=== PATIENT | male | born 1990 | race African-American/Black ===

== ENCOUNTER 2022-10-23 09:41 | Inpatient (IN) | payer OTHER ==
[~2022-10-23] VITALS: Ht 185.4 cm; Wt 77.7 kg
[2022-10-23] VITALS (17 sets, daily range): BP systolic 86–124; BP diastolic 50–86
[2022-10-23] MEDS ORDERED: NALOXONE HCL 0.4 MG/ML VIAL ONE (09:42)
[2022-10-23] MEDS ORDERED: NALOXONE HCL 1MG/ML 2ML SYRINGE ONE ×2 (09:48→09:54)
[2022-10-23] MEDS ORDERED: NALOXONE HCL 0.4 MG/ML VIAL IV ONE (10:00)
[2022-10-23] MEDS ORDERED: NALOXONE HCL 1MG/ML 2ML SYRINGE IV ONE ×2 (10:00→10:15)
[2022-10-23 10:36] LABS: Albumin 3.8 g/dL (3.4-5.0); Anion Gap 5 (5-15); Blood Alcohol < 3.0 mg/dL (0-5); Blood Urea Nitrogen 15 mg/dL (7-18); Calcium 8.3 mg/dL (8.5-10.1); Carbon Dioxide 24 mmol/L (21-32); Chloride 109 mmol/L (98-107); Glucose 132 mg/dL (74-106); Magnesium 2.1 mg/dL (1.6-2.6); Potassium 3.7 mmol/L (3.5-5.1); Sodium 138 mmol/L (136-145)
[2022-10-23 10:39] LABS: Alanine Aminotransferase 52 U/L (16-61); Alkaline Phosphatase 80 U/L (45-117); Aspartate Aminotransferase 68 U/L (15-37); BUN/Creatinine Ratio 14.9 (10.0-20.0); Bilirubin, Total 0.8 mg/dL (0.2-1.0); GFR African American 112 mL/min; GFR Non-African American 92 mL/min; Total Protein 6.9 g/dL (6.4-8.2)
[2022-10-23 10:41] LABS: Basophils # (auto) 0 10 ^3/uL (0-0.2); Eosinophils # (auto) 0 10 ^3/uL (0-0.8); Hematocrit 43.6 % (41.0-53.0); Lymphocytes # (auto) 0.3 10 ^3/uL (0.4-5.4); Lymphocytes % (auto) 3.8 % (10.0-50.0); Mean Corpuscular Hemoglobin 30.4 pg (28.0-32.0); Mean Corpuscular Hgb Conc. 34.4 g/dL (32.0-36.0); Mean Corpuscular Volume 88.2 fL (80.0-100.0); Monocytes # (auto) 0.6 10 ^3/uL (0-1.3); Monocytes % (auto) 6.7 % (0.0-12.0); Neutrophils # (auto) 7.8 10 ^3/uL (1.6-8.6); Neutrophils % (auto) 89.5 % (37.0-80.0); Nucleated Red Blood Cells % 0.1 %; Red Blood Cells 4.94 10^6/uL (4.5-5.90); Red Cell Distribution Width 13.1 % (11.8-14.3); White Blood Cell 8.7 10^3/uL (4.4-10.8)
[2022-10-23] MEDS ORDERED: LORazepam 2MG/ML-1ML VIAL ONE (11:47)
[2022-10-23] MEDS ORDERED: ROCURONIUM 10MG/ML 10ML VIAL IV ONE ×2 (11:49→13:45)
[2022-10-23] MEDS ORDERED: ETOMIDATE (2MG/ML) 20ML VIAL IV ONE ×2 (11:49→13:45)
[2022-10-23] MEDS ORDERED: PROPOFOL 100 ML IV ONE (11:54)
[2022-10-23] MEDS ORDERED: LACTATED RINGER'S 2,000 ML IV ONE (12:45)
[2022-10-23] MEDS ORDERED: ACETAMINOPHEN 650 MG RECT SUPP PR ONE (12:45)
[2022-10-23] MEDS ORDERED: VANCOMYCIN 1GM/250ML 250 ML IV ONE (12:45)
[2022-10-23] MEDS ORDERED: DexAMETHasone SOD PHOS 10MG/1ML VIAL INJ IV ONE (12:45)
[2022-10-23] MEDS ORDERED: CEFTRIAXONE SODIUM 2 GM in D5W 5% 100 ML IV ONE (12:45)
[2022-10-23 12:48] LABS: Lactic Acid w/Reflex 5.3 mmol/L (0.4-2.0)
[2022-10-23] MEDS: NALOXONE HCL 2 MG in DEXTROSE 495 ML IV SCH ×3 (13:18→19:55)
[2022-10-23] MEDS: PROPOFOL 100 ML IV SCH ×3 (13:20→21:06)
[2022-10-23 13:40] LABS: INR 1.08 (0.9-1.15); Partial Thromboplastin Time 28.3 sec (24.6-33.4)
[2022-10-23] MEDS ORDERED: LORazepam 2MG/ML-1ML VIAL IV ONE (13:45)
[2022-10-23 13:48] LABS: Urine Bacteria NONE SEEN /hpf (None Seen); Urine Blood 3+ /uL (Negative); Urine Mucus FEW (None Seen); Urine Specific Gravity 1.026 (1.001-1.035); Urine WBC 2 /hpf (0 - 3)
[2022-10-23 14:26] LABS: Barbiturate Scree,Urine NEGATIVE (NEGATIVE); Benzodiazephine Screen, Urine NEGATIVE (NEGATIVE); Cannabinoid Screen, Urine NEGATIVE (NEGATIVE); Cocaine Screen, Urine NEGATIVE (NEGATIVE)
[2022-10-23 14:29] LABS: Alcohol, Urine < 3.0 mg/dL (0-10); Amphetamine Screen, Urine NEGATIVE (NEGATIVE); Opiate Scree,Urine NEGATIVE (NEGATIVE); Phencyclidine Screen, Urine NEGATIVE (NEGATIVE)
[2022-10-23] MEDS ORDERED: LACTATED RINGER'S 1,000 ML IV ONE (15:15)
[2022-10-23] MEDS ORDERED: MORPHINE SULFATE INJ 2 MG/ml SYRG IV PRN (15:45)
[2022-10-23] MEDS ORDERED: NITROGLYCERIN 0.4 MG SL TAB SL PRN (15:45)
[2022-10-23] MEDS ORDERED: VANCOMYCIN PER PHARMACY 0 MG IV SCH (18:30)
[2022-10-23] MEDS: VANCOMYCIN 1GM/250ML 250 ML IV SCH (21:52)
[2022-10-23] MEDS: SODIUM CHLORIDE 0.9% 1,000 ML IV SCH (22:24)
[2022-10-23] MEDS ORDERED: LORazepam 2MG/ML-1ML VIAL IV PRN (22:30)
[2022-10-24] VITALS (106 sets, daily range): BP systolic 86–146; BP diastolic 51–102
[2022-10-24 04:34] LABS: Basophils # (auto) 0 10 ^3/uL (0-0.2); Basophils % (auto) 0.1 % (0.0-2.0); Eosinophils # (auto) 0 10 ^3/uL (0-0.8); Eosinophils % (auto) 0.2 % (0.0-7.0); Hematocrit 33.8 % (41.0-53.0); Hemoglobin 11.8 g/dL (13.5-17.5); Lymphocytes # (auto) 0.9 10 ^3/uL (0.4-5.4); Mean Corpuscular Hemoglobin 30.7 pg (28.0-32.0); Mean Corpuscular Volume 87.8 fL (80.0-100.0); Monocytes # (auto) 0.6 10 ^3/uL (0-1.3); Monocytes % (auto) 9.1 % (0.0-12.0); Neutrophils # (auto) 4.7 10 ^3/uL (1.6-8.6); Neutrophils % (auto) 76.6 % (37.0-80.0); Red Blood Cells 3.85 10^6/uL (4.5-5.90); Red Cell Distribution Width 13.2 % (11.8-14.3); White Blood Cell 6.1 10^3/uL (4.4-10.8)
[2022-10-24 04:43] LABS: Calcium 7.5 mg/dL (8.5-10.1); Potassium 3.4 mmol/L (3.5-5.1)
[2022-10-24] MEDS: SODIUM CHLORIDE 0.9% 1,000 ML IV SCH ×3 (04:53→18:05)
[2022-10-24] MEDS: PROPOFOL 100 ML IV SCH ×5 (04:54→21:47)
[2022-10-24 05:03] LABS: Albumin 2.6 g/dL (3.4-5.0); BUN/Creatinine Ratio 11.4 (10.0-20.0); Bilirubin, Total 0.7 mg/dL (0.2-1.0); Total Protein 5.2 g/dL (6.4-8.2)
[2022-10-24] MEDS: VANCOMYCIN 1GM/250ML 250 ML IV SCH ×3 (05:49→21:40)
[2022-10-24] MEDS: ENOXAPARIN SOD 40 MG/0.4 ML SYRINGE SC SCH (07:58)
[2022-10-24] MEDS ORDERED: POTASSIUM EFFERVESENT TAB 25 MEQ GT ONE (11:15)
[2022-10-24] MEDS ORDERED: LORazepam 2MG/ML-1ML VIAL IV PRN (11:15)
[2022-10-24] MEDS: fentaNYL Drip 2500mCg/250mlNS 250 ML IV SCH (12:15)
[2022-10-24] MEDS ORDERED: LACTULOSE 20Gm/30ML SOLN PO ONE (13:45)
[2022-10-24] MEDS: carBAMazepine 200 MG/10 ML Ud ORAL Susp GT SCH (21:48)
[2022-10-24] MEDS: NOREPINEPHRINE 8 MG/250ML KIT 250 ML IV SCH ×2 (22:15)
[2022-10-25] VITALS (100 sets, daily range): BP systolic 101–146; BP diastolic 67–108
[2022-10-25] MEDS: PROPOFOL 100 ML IV SCH ×6 (01:43→22:25)
[2022-10-25] MEDS: SODIUM CHLORIDE 0.9% 1,000 ML IV SCH ×4 (03:25→20:55)
[2022-10-25 04:45] LABS: Basophils # (auto) 0 10 ^3/uL (0-0.2); Basophils % (auto) 0.2 % (0.0-2.0); Eosinophils # (auto) 0 10 ^3/uL (0-0.8); Eosinophils % (auto) 0.2 % (0.0-7.0); Hematocrit 38.3 % (41.0-53.0); Lymphocytes # (auto) 1.3 10 ^3/uL (0.4-5.4); Lymphocytes % (auto) 20.4 % (10.0-50.0); Mean Corpuscular Hemoglobin 30.6 pg (28.0-32.0); Mean Corpuscular Volume 89.9 fL (80.0-100.0); Monocytes # (auto) 0.6 10 ^3/uL (0-1.3); Monocytes % (auto) 10.1 % (0.0-12.0); Neutrophils # (auto) 4.4 10 ^3/uL (1.6-8.6); Neutrophils % (auto) 69.1 % (37.0-80.0); Nucleated Red Blood Cells % 0.1 %; Red Blood Cells 4.26 10^6/uL (4.5-5.90); Red Cell Distribution Width 13.4 % (11.8-14.3); White Blood Cell 6.4 10^3/uL (4.4-10.8)
[2022-10-25 04:57] LABS: Potassium 3.4 mmol/L (3.5-5.1)
[2022-10-25 05:09] LABS: Albumin 2.5 g/dL (3.4-5.0); BUN/Creatinine Ratio 6.6 (10.0-20.0); Bilirubin, Total 0.6 mg/dL (0.2-1.0); Calcium 7.8 mg/dL (8.5-10.1); Total Protein 5.7 g/dL (6.4-8.2)
[2022-10-25] MEDS ORDERED: POTASSIUM CHL 20MEQ/100ML 100 ML IV ONE (09:00)
[2022-10-25] MEDS: carBAMazepine 200 MG/10 ML Ud ORAL Susp GT SCH (10:00)
[2022-10-25] MEDS ORDERED: VANCOMYCIN 1GM/250ML 250 ML IV SCH (10:00)
[2022-10-25] MEDS: ENOXAPARIN SOD 40 MG/0.4 ML SYRINGE SC SCH (10:13)
[2022-10-25] MEDS ORDERED: Jevity 1.2 Cal/Fiber 1 Liter GT SCH (10:45)
[2022-10-25] MEDS: fentaNYL Drip 2500mCg/250mlNS 250 ML IV SCH ×2 (11:14→20:37)
[2022-10-25] MEDS: carBAMazepine 200 MG/10 ML Ud ORAL Susp PO SCH ×2 (14:38→21:39)
[2022-10-25] MEDS ORDERED: carBAMazepine 200 MG TAB PO SCH (18:00)
[2022-10-25] MEDS: NOREPINEPHRINE 8 MG/250ML KIT 250 ML IV SCH (21:40)
[2022-10-26] VITALS (90 sets, daily range): BP systolic 101–144; BP diastolic 59–105
[2022-10-26] MEDS: SODIUM CHLORIDE 0.9% 1,000 ML IV SCH ×3 (00:50→12:46)
[2022-10-26] MEDS: PROPOFOL 100 ML IV SCH ×4 (03:53→13:30)
[2022-10-26 04:00] LABS: Basophils # (auto) 0 10 ^3/uL (0-0.2); Basophils % (auto) 0.1 % (0.0-2.0); Eosinophils # (auto) 0 10 ^3/uL (0-0.8); Eosinophils % (auto) 0.6 % (0.0-7.0); Hematocrit 33.8 % (41.0-53.0); Hemoglobin 11.6 g/dL (13.5-17.5); Lymphocytes # (auto) 0.8 10 ^3/uL (0.4-5.4); Lymphocytes % (auto) 16.9 % (10.0-50.0); Mean Corpuscular Hemoglobin 30.4 pg (28.0-32.0); Mean Corpuscular Hgb Conc. 34.4 g/dL (32.0-36.0); Mean Corpuscular Volume 88.5 fL (80.0-100.0); Monocytes # (auto) 0.4 10 ^3/uL (0-1.3); Monocytes % (auto) 9.1 % (0.0-12.0); Neutrophils # (auto) 3.6 10 ^3/uL (1.6-8.6); Neutrophils % (auto) 73.3 % (37.0-80.0); Nucleated Red Blood Cells % 0.1 %; Red Blood Cells 3.82 10^6/uL (4.5-5.90); Red Cell Distribution Width 13.2 % (11.8-14.3); White Blood Cell 4.9 10^3/uL (4.4-10.8)
[2022-10-26 04:17] LABS: Albumin 2.1 g/dL (3.4-5.0); Calcium 7.5 mg/dL (8.5-10.1); Potassium 3.4 mmol/L (3.5-5.1)
[2022-10-26 04:38] LABS: Bilirubin, Total 0.4 mg/dL (0.2-1.0)
[2022-10-26] MEDS: carBAMazepine 200 MG/10 ML Ud ORAL Susp PO SCH ×2 (06:12→13:22)
[2022-10-26] MEDS: PANTOPRAZOLE 40 MG/10 ML VIAL INJ IV SCH (09:48)
[2022-10-26] MEDS: ENOXAPARIN SOD 40 MG/0.4 ML SYRINGE SC SCH (09:49)
[2022-10-26] MEDS ORDERED: POTASSIUM CHL 20MEQ/100ML 100 ML IV ONE ×2 (18:45→18:46)
[2022-10-26] MEDS: NOREPINEPHRINE 8 MG/250ML KIT 250 ML IV SCH (20:46)
[2022-10-27] VITALS (25 sets, daily range): BP systolic 121–145; BP diastolic 78–97
[2022-10-27] MEDS: SODIUM CHLORIDE 0.9% 1,000 ML IV SCH ×3 (01:54→08:57)
[2022-10-27 04:17] LABS: Basophils # (auto) 0 10 ^3/uL (0-0.2); Basophils % (auto) 0.2 % (0.0-2.0); Eosinophils # (auto) 0 10 ^3/uL (0-0.8); Eosinophils % (auto) 0.5 % (0.0-7.0); Hematocrit 34.3 % (41.0-53.0); Hemoglobin 11.8 g/dL (13.5-17.5); Lymphocytes # (auto) 1.2 10 ^3/uL (0.4-5.4); Lymphocytes % (auto) 23.3 % (10.0-50.0); Mean Corpuscular Hemoglobin 30.4 pg (28.0-32.0); Mean Corpuscular Hgb Conc. 34.5 g/dL (32.0-36.0); Mean Corpuscular Volume 88.1 fL (80.0-100.0); Monocytes # (auto) 0.5 10 ^3/uL (0-1.3); Monocytes % (auto) 9.3 % (0.0-12.0); Neutrophils # (auto) 3.3 10 ^3/uL (1.6-8.6); Neutrophils % (auto) 66.7 % (37.0-80.0); Nucleated Red Blood Cells % 0.1 %; Red Blood Cells 3.89 10^6/uL (4.5-5.90); Red Cell Distribution Width 12.6 % (11.8-14.3)
[2022-10-27 04:32] LABS: Potassium 3.6 mmol/L (3.5-5.1)
[2022-10-27 04:39] LABS: Albumin 2.3 g/dL (3.4-5.0); BUN/Creatinine Ratio 9.4 (10.0-20.0); Bilirubin, Total 0.8 mg/dL (0.2-1.0); Calcium 7.5 mg/dL (8.5-10.1); Total Protein 5.4 g/dL (6.4-8.2)
[2022-10-27] MEDS: PANTOPRAZOLE 40 MG/10 ML VIAL INJ IV SCH (10:17)
[2022-10-27] MEDS: ENOXAPARIN SOD 40 MG/0.4 ML SYRINGE SC SCH (10:17)
[2022-10-28 05:00] VITALS: BP 142/63
[2022-10-28 05:29] LABS: Potassium 3.3 mmol/L (3.5-5.1)
[2022-10-28 05:44] LABS: BUN/Creatinine Ratio 13.8 (10.0-20.0)
[2022-10-28] MEDS ORDERED: POTASSIUM CHL 20 Meq TABLET PO ONE (07:45)
[2022-10-28 09:00] VITALS: BP 124/72
[2022-10-28] MEDS: PANTOPRAZOLE 40 MG/10 ML VIAL INJ IV SCH (09:52)
[2022-10-28] MEDS: ENOXAPARIN SOD 40 MG/0.4 ML SYRINGE SC SCH (09:52)
[2022-10-28] MEDS ORDERED: levoFLOXacin 500MG 100 ML IV SCH (10:00)
[2022-10-28] MEDS ORDERED: levoFLOXacin 500 MG TAB PO SCH (10:00)
[2022-10-28] MEDS: carBAMazepine 200 MG TAB PO SCH ×3 (12:21→21:17)
[2022-10-28 13:00] VITALS: BP 129/92
[2022-10-28 16:37] VITALS: BP 129/90
[2022-10-28] MEDS: Pro-Stat SF 30ml Vanilla PO SCH (17:46)
[2022-10-28 20:00] VITALS: BP 136/96
[2022-10-28 22:00] VITALS: BP 136/96
[2022-10-29 05:06] VITALS: BP 118/75
[2022-10-29] MEDS: carBAMazepine 200 MG TAB PO SCH ×3 (06:06→18:00)
[2022-10-29 06:18] LABS: Calcium 8.5 mg/dL (8.5-10.1); Potassium 3.8 mmol/L (3.5-5.1)
[2022-10-29 06:35] LABS: BUN/Creatinine Ratio 14.1 (10.0-20.0)
[2022-10-29 08:30] VITALS: BP 126/67
[2022-10-29] MEDS: Pro-Stat SF 30ml Vanilla PO SCH ×2 (10:40→18:00)
[2022-10-29] MEDS: PANTOPRAZOLE 40 MG/10 ML VIAL INJ IV SCH (10:40)
[2022-10-29] MEDS: ENOXAPARIN SOD 40 MG/0.4 ML SYRINGE SC SCH (10:41)
[2022-10-29 13:20] VITALS: BP 127/78
== END 2022-10-29 16:30 | disposition home or self-care (01) | DRG 208 ==
LOC: EEVIPCON 09:41 → EDBD 09:41 → ER 09:41 → TELE 16:24 → ICU WEST 21:28 → CENTRAL 10-27 22:45
PROVIDERS: ADMIT Internal Medicine; ATTEND Internal Medicine
PROC: 5A1945Z Respiratory Ventilation, 24-96 Consecutive Hours (ICD-10-PCS; principal; 2022-10-23)
PROC: 0BH17EZ Insertion of Endotracheal Airway into Trachea, Via Natural or Artificial Opening (ICD-10-PCS; 2022-10-23)
DX: J15.6 Pneumonia due to other Gram-negative bacteria (principal); J96.01 Acute respiratory failure with hypoxia; F11.20 Opioid dependence, uncomplicated; E72.20 Disorder of urea cycle metabolism, unspecified; J98.11 Atelectasis; M62.82 Rhabdomyolysis; E87.20 Acidosis, unspecified; J15.211 Pneumonia due to Methicillin susceptible Staphylococcus aureus; G40.401 Other generalized epilepsy and epileptic syndromes, not intractable, with status epilepticus; F32.A Depression, unspecified; F41.9 Anxiety disorder, unspecified; Z20.822 Contact with and (suspected) exposure to COVID-19; Z79.899 Other long term (current) drug therapy; Y92.89 Other specified places as the place of occurrence of the external cause
CPT/HCPCS: 31500; 36415; 36600; 70450; 70551; 71045; 71046; 80048; 80053; 80156; 80202; 80307; 80320; 80329; 81001; 82140; 82550; 82805; 82962; 83605; 83735; 83880; 84484; 85025; 85610; 85730; 87040; 87070; 87077; 87081; 87086; 87186; 87205; 87426; 93005; 94002; 94003; 95819; 96361; 96374; 96376; 99291; C9113; G0378; J2704; J3480; J7060